=== PATIENT | female | born 1960 | race Caucasian/White ===

== ENCOUNTER → 2023-07-01 10:58 | Outpatient (REF) | payer OTHER, SELFPAY | LOC: RAD 10:58 | PROVIDERS: ATTENDING PHYSICIAN Physician Assistant Medical | DX: M79.671 Pain in right foot (principal); M79.672 Pain in left foot; M25.572 Pain in left ankle and joints of left foot | CPT/HCPCS: 73610; 73630 ==

== ENCOUNTER → 2023-07-05 08:11 | Outpatient (REF) | payer OTHER, SELFPAY | LOC: WDC 08:11 | PROVIDERS: ATTENDING PHYSICIAN Family Medicine | DX: C73 Malignant neoplasm of thyroid gland (principal); Z12.31 Encounter for screening mammogram for malignant neoplasm of breast | CPT/HCPCS: 77063; 77067; 78071; A9500 ==

== ENCOUNTER 2023-07-20 06:15 | Day surgery (SDC) | payer OTHER, SELFPAY ==
[2023-07-07 09:15] LABS: INR 1.31; PT 16.4 Sec (11.4-14.6)
[2023-07-07 09:17] LABS: APTT 30.8 Sec (23.4-35.0)
[2023-07-07 13:12] VITALS: BMI 37.7
--- NOTE | 2023-07-15 11:43 | PTCARENOTE ---
Patients 07/07 INR 1.31- Gladys @ Dr. Mathis office notified
[2023-07-20] VITALS (11 sets, daily range): BP systolic 107–135; BP diastolic 54–82; BMI 37.7
[2023-07-20] MEDS: NORMOSOL-R 1000 IV (11:33)
[2023-07-20] MEDS: TYLENOL 1000 MG PO (11:33)
[2023-07-20] MEDS: NEURONTIN 300 MG PO (11:37)
[2023-07-20 12:07] LABS: INR 1.29; PT 16.1 Sec (11.4-14.6)
[2023-07-20 12:08] LABS: APTT 28.7 Sec (23.4-35.0)
[2023-07-20] MEDS: HEPARIN 5000 UNITS SC (12:50)
--- NOTE | 2023-07-20 15:30 | OR.RPT ---
Operative Report
Operative Report
OPERATION: �Total Thyroidectomy & Full Neck Dissection - [id number]
ANESTHESIA: GET
ESTIMATED BLOOD LOSS: 3 cc
DRAINS: None
SPECIMEN: �total thyroid and level paratracheal tissue
FINDINGS: thyroid cancer
COMPLICATIONS:�None
PROCEDURE:
The patient was taken to the operating room and placed in the usual supine position. After adequate general endotracheal anesthesia was established, the patient�s neck was extended, prepped, and draped in the typical sterile fashion. A 5 cm
transcervical incision was made two fingerbreadths above the sternal notch. The skin incision was made with the #15 blade, which was taken through the skin into the subcutaneous tissue. The underlying platysma muscle was divided, and subplatysmal
flaps were created superiorly to the thyroid cartilage and inferiorly to the sternal notch. Strap muscles were identified and at the midline.
Attention was turned to the patient�s left thyroid lobe. The left thyroid lobe was mobilized medially. During this process, the left middle thyroid vein and inferior thyroid artery were dissected and ligated with Ligasure. Next, the left superior
pole was taken down by dissecting and transecting the superior pole vessels with a Ligasure. The left thyroid lobe was mobilized medially. During this process, the left recurrent laryngeal nerve was identified and preserved throughout its entire
course. The left inferior parathyroid gland was identified and preserved. The left thyroid lobe with isthmus was resected off the trachea and sent to the pathology department.
Attention was turned to the patient�s right thyroid lobe. The right thyroid lobe was mobilized medially. During this process, the right middle thyroid vein and inferior thyroid artery were dissected and ligated with Ligasure. Next, the right
superior pole was taken down by dissecting and transecting the superior pole vessels with a Ligasure. The right thyroid lobe was mobilized medially. During this process, the right recurrent laryngeal nerve was identified and preserved throughout its
entire course. The right superior and inferior parathyroid glands were identified and preserved. The right thyroid lobe with isthmus was resected off the trachea and sent to the pathology department.
At this time, the selective neck dissection was performed. The tissue between the right carotid artery to the trachea into the anterior mediastinum was carefully dissected. The previously identified recurrent laryngeal nerve and parathyroid glands
were preserved. The tissue was removed and sent to the pathology department.
After obtaining adequate hemostasis, the strap muscle was approximated with #3-0 Vicryl in a running fashion, and platysma muscles were reapproximated with #3-0 Vicryl in an interrupted fashion, and the skin was approximated with #4-0 Monocryl in a
running subcuticular fashion. Steri-strips and sterile dressings were placed. The patient tolerated the procedure well. The final instrument, needle, and sponge counts were correct
== END 2023-07-20 16:25 | disposition home or self-care (01) ==
LOC: PACU 06:15
PROVIDERS: ATTENDING PHYSICIAN Surgery; FAMILY PHYSICIAN Family Medicine
DX: C73 Malignant neoplasm of thyroid gland (principal); C77.0 Secondary and unspecified malignant neoplasm of lymph nodes of head, face and neck
CPT/HCPCS: 60252; 88307; 36415; 85610; 85730; 88341; 88342; 93005

== ENCOUNTER 2023-07-24 07:06 | Emergency (ER) | payer OTHER, SELFPAY ==
[2023-07-24] VITALS (8 sets, daily range): BP systolic 122–157; BP diastolic 73–95; BMI 37.2
[2023-07-24 08:09] LABS: Hematocrit 35.6 % (37.0-47.0); Hemoglobin 12.7 g/dL (12.0-16.0); Mean Corp Hgb Conc. 35.7 g/dL (33.0-37.0); Mean Corpuscular Hgb 32.9 pg (27.0-31.0); Mean Corpuscular Volume 92.2 fL (81.0-99.0); Mean Platelet Volume 10.1 fL (7.4-10.4); Platelet Count 238 10^3/uL (130-400); Red Blood Cell Count 3.86 10^6/uL (4.20-5.40); Red Cell Dist. Width 13.6 % (11.5-14.5); White Blood Cell Count 7.7 10^3/uL (4.8-10.8)
[2023-07-24 08:32] LABS: Blood Urea Nitrogen 19 mg/dl (7-17); Calcium 5.3 mg/dl (8.4-10.2); Carbon Dioxide 26 mmol/L (22-30); Chloride 105 mmol/L (98-107); Estimated Creatinine Clearance 79 ml/min; Glucose 92 mg/dl (70-99); Magnesium 1.3 mg/dl (1.6-2.3); Potassium 3.5 mmol/L (3.5-5.1); Sodium 137 mmol/L (135-145); eGFR > 60.00
--- NOTE | 2023-07-24 09:11 | ED.GENMED ---
History of Present Illness
General
Chief Complaint: Numbness
Source: patient
Exam Limitations: none
Time Seen by Provider: 07/24/23 07:29
Nursing documentation reviewed up to this point in time: agreed with
Travel History
Have you had any contact with someone who has COVID-19?: No
Do you have any symptoms of coronavirus? Fever > 100 degrees, chills, cough, shortness of breath, sore throat, loss of taste or smell, muscle aches, or headache?: No
History of Present Illness
History of Present Illness:
Patient's status post thyroidectomy 4 days ago, on levothyroxine postop, presents to ED secondary to sudden onset of numbness sensation last night, along with bilateral forearm/hands numbness/tingling sensation upon waking up this morning. Denies
weakness. Denies fever. Denies chills. Denies nausea or vomiting. Denies facial pain. Denies shortness of breath. Of note, patient states that she has had hypocalcemia, for which she is being treated with calcium as well as vitamin D
supplements. Prior to surgery, her calcium level was slightly below normal range.
Past History
Past History
ED Past Medical History: HTN, NIDDM and Other (Kidney stones, UTI)
ED Past Surgical History: Appendectomy, Cholecystectomy and Other (Gastric bypass)
Social History
Tobacco: Non-smoker
Alcohol: Occasional
Drug: None
Personal:
Living: with family
Employment: Employed
Family History
Family History: Diabetes and Hypertension
Review of Systems
Review of Systems
Allergies reviewed?: Yes
All Other Systems: ROS reviewed and negative except as documented in HPI and ROS
Constitutional: Reports no symptoms
EENT: Reports no symptoms
Respiratory: Reports no symptoms; Denies trouble breathing
Cardiac: Reports no symptoms; Denies chest pain
ABD/GI: Reports no symptoms; Denies nausea or vomiting
Musculoskeletal: Reports no symptoms
Skin: Reports no symptoms
Neurological: Reports numbness
Phy Exam
Physical Exam
Physical Exam:
Physical Exam
General: no apparent distress, not acutely ill. afebrile.
Head: nc/at. eomi
Neck: supple. no meningeal signs.
Heart: s1/s2 regular rate and rhythm, no murmur. equal radial pulses.
Lungs: no acute respiratory distress. clear bilaterally
Abdomen: normal bowel sounds. not tender.
Neuro: alert and oriented. no focal neurological deficits
Skin: no rash
Psychiatric: well kept. interactive and cooperative
Extremities: no edema. no calf tenderness.
Course
Orders/Labs/Results
Orders:
Orders
07/24/23 08:03
Basic Metabolic Panel Urgent
Complete Blood Count/No Diff Urgent
Magnesium Urgent
TSH Reflex To Free T4 Urgent
07/24/23 08:57
Magnesium Sulfate 1 grams 0.9% Sodium Chloride 100 ml [Nss] 100 ml IV NOW
07/24/23 09:00
Calcium Gluconate 2 gram/100mL [Calcium Gluconate] 2 gram in 100 ml IV ONCE
07/24/23 12:01
BMP [Basic Metabolic Panel] Urgent
Magnesium Urgent
07/24/23 12:45
Calcium Gluconate 1 gram/100mL [Calcium Gluconate] 1 gram in 100 ml IV ONCE
Abnormal Lab Results
07/24/23 07/24/23
08:03 12:01
RBC 3.86 L 10^6/uL
(4.20-5.40)
Hct 35.6 L %
(37.0-47.0)
MCH 32.9 H pg
(27.0-31.0)
BUN 19 H mg/dl 18 H mg/dl
(7-17) (7-17)
Glucose 124 H mg/dl
(70-99)
Calcium 5.3 L* mg/dl 5.9 L* mg/dl
(8.4-10.2) (8.4-10.2)
Magnesium 1.3 L mg/dl
(1.6-2.3)
07/24/23 08:03
07/24/23 12:01
Vital Signs
Initial and Last Documented VS:
Initial Vital Signs
Temp Pulse Resp BP Pulse Ox
98.2 F 74 16 157/95 98
07/24/23 07:12 07/24/23 07:12 07/24/23 07:12 07/24/23 07:12 07/24/23 07:12
Last Documented Vital Signs
Temp Pulse Resp BP Pulse Ox
98.2 F 74 16 123/88 96
07/24/23 07:12 07/24/23 07:12 07/24/23 07:12 07/24/23 13:00 07/24/23 13:30
MDM/Problems Addressed
MDM/Problems Addressed:
Discussed with patient's surgeon (). Request iv calcium infusion, if blood work does confirm hypocalcemia. Afterwards recommends continuing calcium supplements as well as tums. Will see patient in the office this week.
Hypocalcemia and hypomagnesemia noted. Both repleted. Repeat blood work reveals improved calcium level, along with complete resolution of patient's numbness tingling sensation. Patient given 1 additional gram of IV calcium infusion prior to
discharge. Patient will follow-up with her surgeon as scheduled next week.
Critical care statement: A total of 40 minutes of critical care time was provided for this patient. This includes management of unstable vital signs, evaluation of the patient at bedside, reviewing the patient's pertinent medical records, discussion
with consultants, review of old EKGs and review of pertinent medical records. This time with separate from time utilized to perform the aforementioned documented procedures
*Critical Care Note
Total Time (30-74mins, 75-104mins- exclusive of procedures): 40 min
ED Attending Note
-
Portions of this chart may have been created with voice recognition software.� Occasional wrong word or��sound alike� substitutions may have occurred due to the inherent limitations of voice recognition software.
Discharge Plan
Departure
Patient Disposition: Home (Routine Discharge)
Date of Disposition: 07/24/23
Time of Disposition: 13:27
Patient with high blood pressure during this ER visit?: Yes
Condition: Good
Discharge Problem:
Hypocalcemia
Instructions: Hypocalcemia (DC)
Prescriptions:
No Action
sertraline [Zoloft] 100 MG tablet
100 mg PO BID
calcitriol 0.25 MCG capsule
0.5 mcg PO DAILY
lamotrigine [Lamictal] 200 mg Tablet
100 mg PO BID
ferrous sulfate [iron] 325 mg (65 mg iron) Tablet
325 mg PO DAILY
cholecalciferol (vitamin D3) [Vitamin D3] 50 mcg (2,000 unit) Capsule
50 mcg PO DAILY
acetaminophen [Tylenol] 325 mg Tablet
650 mg PO BIDPRN PRN (Reason: mild pain)
levothyroxine [Synthroid] 25 mcg Tablet
25 mcg PO DAILY
calcium citrate 250 mg calcium Tablet
250 mg PO TID
Referrals:
Sarwat Perez MD [Family Provider] -
Chris Kaur MD [Active] -
Activity Restrictions/Additional Instructions:
As discussed, please follow-up with your surgeon next week for further evaluation and treatment.
Interventions
Interventions:
*Risk Screen - Suicide Last Done: 07/24/23 07:12
*General Assessment Last Done: 07/24/23 07:12
*Neglect/Abuse Screening Last Done: 07/24/23 07:12
ED- Fall Risk Assessment Last Done: 07/24/23 07:54
*ED COVID-19 Vaccine History Last Done: 07/24/23 07:54
*Nursing Disposition Last Done: 07/24/23 13:43
ED- Neurological Assessment Last Done: 07/24/23 07:54
Discharge Date and Time
Discharge Date/Time: 07/24/23 13:43
[2023-07-24 09:17] LABS: TSH Reflex To Free T4 1.98 uIU/ml (0.47-4.68)
[2023-07-24] MEDS: MAGNESIUM SULFATE 102 GRAMS IV (09:38)
[2023-07-24] MEDS: CALCIUM GLUCONATE 100 IV ×2 (09:39→12:59)
[2023-07-24 12:39] LABS: Blood Urea Nitrogen 18 mg/dl (7-17); Calcium 5.9 mg/dl (8.4-10.2); Carbon Dioxide 26 mmol/L (22-30); Chloride 104 mmol/L (98-107); Estimated Creatinine Clearance 79 ml/min; Glucose 124 mg/dl (70-99); Magnesium 1.6 mg/dl (1.6-2.3); Potassium 3.5 mmol/L (3.5-5.1); Sodium 140 mmol/L (135-145); eGFR > 60.00
== END 2023-07-24 13:43 | disposition home or self-care (01) ==
LOC: EMR 07:06
PROVIDERS: EMERGENCY PHYSICIAN Emergency Medicine; FAMILY PHYSICIAN Family Medicine
DX: E83.42 Hypomagnesemia (principal); E83.51 Hypocalcemia; R20.0 Anesthesia of skin; I10 Essential (primary) hypertension; E11.9 Type 2 diabetes mellitus without complications; Z82.49 Family history of ischemic heart disease and other diseases of the circulatory system; Z83.3 Family history of diabetes mellitus; Z87.440 Personal history of urinary (tract) infections; Z87.442 Personal history of urinary calculi; Z90.49 Acquired absence of other specified parts of digestive tract; Z98.84 Bariatric surgery status
CPT/HCPCS: 99283; 96365; 96375; 96376; 80048; 83735; 84443; 85027

== ENCOUNTER → 2023-08-18 07:36 | Outpatient (REF) | payer OTHER, SELFPAY | LOC: EMG 07:36 | PROVIDERS: ATTENDING PHYSICIAN Podiatrist Foot & Ankle Surgery; FAMILY PHYSICIAN Family Medicine | DX: R20.0 Anesthesia of skin (principal) | CPT/HCPCS: 95886; 95911 ==

== ENCOUNTER → 2023-10-17 06:53 | Outpatient (REF) | payer OTHER, SELFPAY | LOC: MRI 06:53 | PROVIDERS: ATTENDING PHYSICIAN Specialist; FAMILY PHYSICIAN Family Medicine | DX: M54.16 Radiculopathy, lumbar region (principal) | CPT/HCPCS: 72148 ==

== ENCOUNTER → 2024-02-24 14:50 | Outpatient (REF) | payer OTHER, SELFPAY | LOC: PAVMRI 14:50 | PROVIDERS: ATTENDING PHYSICIAN Neurological Surgery; FAMILY PHYSICIAN Family Medicine | DX: D36.10 Benign neoplasm of peripheral nerves and autonomic nervous system, unspecified (principal) | CPT/HCPCS: 70553; A9575 ==

== ENCOUNTER → 2024-06-21 09:47 | Outpatient (REF) | payer OTHER, SELFPAY | LOC: WDC 09:47 | PROVIDERS: ATTENDING PHYSICIAN Obstetrics & Gynecology Gynecology | DX: N64.4 Mastodynia (principal) | CPT/HCPCS: 76642; 77062; 77066 ==

== ENCOUNTER → 2024-07-10 10:25 | Outpatient (REF) | payer OTHER, SELFPAY | LOC: RAD 10:25 | PROVIDERS: ATTENDING PHYSICIAN Internal Medicine Endocrinology, Diabetes & Metabolism; FAMILY PHYSICIAN Family Medicine | DX: C73 Malignant neoplasm of thyroid gland (principal) | CPT/HCPCS: 76536 ==

== ENCOUNTER → 2024-08-21 11:52 | Outpatient (REF) | payer OTHER, SELFPAY | LOC: HWRAD 11:52 | PROVIDERS: ATTENDING PHYSICIAN Nurse Practitioner Family; FAMILY PHYSICIAN Family Medicine | DX: R07.89 Other chest pain (principal) | CPT/HCPCS: 71046 ==

== ENCOUNTER → 2025-03-16 13:18 | Outpatient (REF) | payer OTHER, SELFPAY | LOC: RAD 13:18 | PROVIDERS: ATTENDING PHYSICIAN Physician Assistant Medical; FAMILY PHYSICIAN Family Medicine | DX: M79.605 Pain in left leg (principal); M79.609 Pain in unspecified limb | CPT/HCPCS: 93971 ==

== ENCOUNTER → 2025-03-20 20:41 | Outpatient (REF) | payer OTHER, SELFPAY | LOC: MRI 20:41 | PROVIDERS: ATTENDING PHYSICIAN Neurological Surgery; FAMILY PHYSICIAN Family Medicine | DX: D36.10 Benign neoplasm of peripheral nerves and autonomic nervous system, unspecified (principal) | CPT/HCPCS: 70553; A9575 ==